=== PATIENT | female | born 1955 | race Caucasian/White ===

== ENCOUNTER 2022-08-02 09:20 | Inpatient (IN) | payer BC ==
[~2022-08-02] VITALS: Ht 162.6 cm; Wt 75.7 kg
[2022-08-02 09:26] VITALS: BP_SYST 128
[2022-08-02] MEDS ORDERED: IPRATROPIUM BROM 0.5 MG/2.5 ML VIAL.NEB (ATROVENT) INH ONE (09:30)
[2022-08-02] MEDS ORDERED: ALBUTEROL SULFATE 0.083% 2.5 MG/3 ML VIAL.NEB INH ONE (09:30)
[2022-08-02] MEDS ORDERED: methylPREDNISolone SOD SUCC/PF 62.5 MG/ML VIAL IVP ONE (09:30)
[2022-08-02] MEDS ORDERED: MAGNESIUM SULFATE 50 ML IV ONE (09:30)
--- NOTE | 2022-08-02 09:30 | NUR ---
Placed in room 02 . Placed on deckhand shrimp boat, blood pressure machine and pulse oximeter. To gown for exam. Side rails up. Report given to CUONG MCKNIGHT.
--- NOTE | 2022-08-02 09:31 | NUR ---
Pt was brought in from home by ACLS c/o SOB since she woke up this AM. Pt states she has not been feeling well for several days. Pt has hx of asthma. Denies hx of surgery. Denies use of alcohol, tobacco, other drugs. Pt is A&Ox4, calm and cooperative. Care to be provided as ordered by physician.
--- NOTE | 2022-08-02 09:32 | NUR ---
ER Dr. Davis at bedside examining patient.
[2022-08-02 10:00] LABS: BASOPHILS % (AUTO) 0.4 % (0.0-2.0); EOSINOPHILS % (AUTO) 0.2 % (0.0-4.0); HEMATOCRIT 38.2 % (36-48); HEMOGLOBIN 12.4 g/dL (12.0-16.0); LYMPHOCYTES # (AUTO) 1.2 K/uL (1.0-5.5); LYMPHOCYTES % (AUTO) 13.7 % (20.5-51.5); MEAN CORPUSCULAR HEMOGLOBIN 31 pg (27-31); MEAN CORPUSCULAR HGB CONC 33 % (32-36); MEAN CORPUSCULAR VOLUME 94 fL (79.0-98.0); MONOCYTES # (AUTO) 0.2 K/uL (0.0-1.0); MONOCYTES % (AUTO) 2.7 % (1.7-9.3); NEUTROPHILS # (AUTO) 7.5 K/uL (1.8-7.7); PLATELET COUNT (AUTO) 237 K/uL (130-430); RED BLOOD CELL COUNT(AUTO) 4.08 MIL/uL (4.2-6.2); RED CELL DISTRIBUTION WIDTH 13.9 % (9.0-15.0); WHITE BLOOD COUNT (AUTO) 9.1 K/uL (4.8-10.8)
[2022-08-02 10:14] LABS: ANION GAP 11 (5-15); CALCIUM 9.6 mg/dL (8.4-11.0); CHLORIDE 99 mmol/L (98-107); CREATININE 1.18 mg/dL (0.55-1.30); GLUCOSE 93 mg/dL (70-99); UREA NITROGEN, BLOOD 16 mg/dL (8-21)
[2022-08-02 10:19] LABS: ALANINE AMINOTRANSFERASE 23 U/L (12-78); ALBUMIN 2.6 g/dL (3.4-4.8); ASPARTATE AMINOTRANSFERASE 21 U/L (10-37); TOTAL BILIRUBIN 0.8 mg/dL (0.0-1.0)
[2022-08-02 10:36] LABS: GFR AFRICAN AMERICAN 59 mL/min (>90)
[2022-08-02] MEDS ORDERED: AZITHROMYCIN 500 MG in NS 250 ML IV ONE (11:30)
[2022-08-02] MEDS ORDERED: cefTRIAXone 2 GM VIAL IM ONE (11:30)
[2022-08-02] MEDS ORDERED: NACL 0.9% 1,000 ML IV ONE ×2 (11:30→12:15)
[2022-08-02] MEDS ORDERED: ALBUTEROL SULFATE 0.083% 2.5 MG/3 ML VIAL.NEB INH PRN (12:15)
[2022-08-02] MEDS ORDERED: ONDANSETRON HCL 4 MG/2 ML VIAL IVP PRN (12:15)
[2022-08-02] MEDS ORDERED: IPRATROPIUM BROM 0.5 MG/2.5 ML VIAL.NEB (ATROVENT) INH PRN (12:15)
[2022-08-02] MEDS ORDERED: AZITHROMYCIN 500 MG/VIAL (ZITHROMAX) IV ONE (12:42)
[2022-08-02] MEDS ORDERED: cefTRIAXone 1 GM IVPB PREMIX 50 ML IV ONE (12:45)
--- NOTE | 2022-08-02 13:56 | NUR ---
Admit bed requested Patient will be admitted to care of . Admitted to TELE unit. Diagnosis PNA Inpatient (Yes or No) YES Observation (Yes or No) NO Orientation concerns or request close to nursing station (Yes or No) NO Covid Status NEGATIVE On vent or bipap NO Isolation requirements NO Needs a sitter NO From Home (Yes or if No enter name of facility) HOME Requires Dialysis (Yes or No) NO Med Rec Completed (Yes of No) YES
--- NOTE | 2022-08-02 15:22 | NUR ---
CONSULT: CONSULT FOR DR LIGHT CALLED REASON- PNA ORDERING [facility]
[2022-08-02] MEDS: ALBUTEROL SULFATE 0.083% 2.5 MG/3 ML VIAL.NEB INH SCH ×3 (15:24→23:42)
[2022-08-02] MEDS: IPRATROPIUM BROM 0.5 MG/2.5 ML VIAL.NEB (ATROVENT) INH SCH ×3 (15:24→23:42)
--- NOTE | 2022-08-02 15:31 | NUR ---
REPORT GIVEN TO STEVEN HUTCHINS.
--- NOTE | 2022-08-02 15:34 | NUR ---
Patient will be admitted to [facility]. Admitted to TELE unit. Will go to room 130. Belongings list completed. Complete and up to date summary report printed. SBAR report to be given at bedside with opportunity for questions.
[2022-08-02 15:45] VITALS: BP_SYST 113
--- NOTE | 2022-08-02 15:45 | NUR ---
Miss Bergman has been assessed as indicated. She is being admitted to room 130-A. She states that she has HTN, chronic back pain for which she is being followed by a pain clinic MD. She also states that she has GERD and has back surgery to treat scoliosis she wears a back brace even while lying in bed. She has provided a list of home medications that have been added to the computer system. She states that she lives with her care givers but does not know a phone number for Norma Bolden and Scott Smith.
[2022-08-02 16:13] VITALS: BP_SYST 113
[2022-08-02] MEDS ORDERED: TOPXL100 PO (17:29)
[2022-08-02] MEDS ORDERED: METO-442 PO (17:29)
[2022-08-02] MEDS ORDERED: LISI30TA36 PO (17:30)
[2022-08-02] MEDS ORDERED: BREX0.25 PO (17:30)
[2022-08-02] MEDS ORDERED: OXYIR5 PO (17:35)
[2022-08-02] MEDS ORDERED: MORP15TA PO (17:35)
[2022-08-02] MEDS ORDERED: ALPR1TAB2 PO (17:35)
[2022-08-02] MEDS ORDERED: TRAZ-250 PO (17:35)
[2022-08-02] MEDS ORDERED: CYCL10TA24 PO (17:35)
[2022-08-02 20:00] VITALS: BP_SYST 120
--- NOTE | 2022-08-02 20:10 | NUR ---
handoff has been given to [employer]
[2022-08-02] MEDS: oxyCODONE HCL 5 MG TABLET PO SCH (20:44)
[2022-08-02] MEDS: methylPREDNISolone SOD SUCC/PF 62.5 MG/ML VIAL IVP SCH (20:45)
[2022-08-02] MEDS: traZODone HCL 50 MG TABLET (DESYREL) PO PRN (20:45)
[2022-08-02] MEDS: FAMOTIDINE PF 20 MG/2 ML VIAL IVP SCH (20:47)
[2022-08-03] VITALS: BP_SYST 119
[2022-08-03 00:15] VITALS: BP_SYST 135
[2022-08-03] MEDS: IPRATROPIUM BROM 0.5 MG/2.5 ML VIAL.NEB (ATROVENT) INH SCH ×5 (03:30→20:28)
[2022-08-03] MEDS: ALBUTEROL SULFATE 0.083% 2.5 MG/3 ML VIAL.NEB INH SCH ×5 (03:30→20:28)
[2022-08-03 07:07] LABS: HEMATOCRIT 31.1 % (36-48); HEMOGLOBIN 10.4 g/dL (12.0-16.0); LYMPHOCYTES # (AUTO) 0.3 K/uL (1.0-5.5); LYMPHOCYTES % (AUTO) 2.3 % (20.5-51.5); MEAN CORPUSCULAR HEMOGLOBIN 31 pg (27-31); MEAN CORPUSCULAR HGB CONC 34 % (32-36); MEAN CORPUSCULAR VOLUME 92 fL (79.0-98.0); MONOCYTES # (AUTO) 0.3 K/uL (0.0-1.0); MONOCYTES % (AUTO) 1.9 % (1.7-9.3); NEUTROPHILS % (AUTO) 95.8 % (40.0-70.0); PLATELET COUNT (AUTO) 230 K/uL (130-430); RED BLOOD CELL COUNT(AUTO) 3.38 MIL/uL (4.2-6.2); RED CELL DISTRIBUTION WIDTH 13.9 % (9.0-15.0); WHITE BLOOD COUNT (AUTO) 13.6 K/uL (4.8-10.8)
[2022-08-03 07:42] LABS: ALBUMIN 2.2 g/dL (3.4-4.8); CREATININE 0.89 mg/dL (0.55-1.30); TOTAL BILIRUBIN 0.5 mg/dL (0.0-1.0)
[2022-08-03 08:00] VITALS: BP_SYST 112
--- NOTE | 2022-08-03 08:00 | NUR ---
Initial Notes Patient is Aox4. No ss of acute respiratory distress noted. Patient on 2 L O2 via nasal cannula. Breathing is even and nonlabored. Patient is resting in bed, awake. Denies severe pain. Denies SOB. IV on LFA, 22 G patent. Vital signs obtained, as documented. Breakfast on bedside table. Bed is locked, alarm on, and at lowest position. Call light within reach.
[2022-08-03] MEDS: oxyCODONE HCL 5 MG TABLET PO SCH ×3 (09:27→20:41)
[2022-08-03] MEDS: lisinopriL 20 MG TABLET PO SCH (09:27)
[2022-08-03] MEDS: ENOXAPARIN SODIUM 40 MG/0.4 ML SYRINGE SUBCUT SCH (09:28)
[2022-08-03] MEDS: METOPROLOL SUCCINATE 50 MG TAB.SR.24H (TOPROL XL) PO SCH (09:28)
--- NOTE | 2022-08-03 10:00 | NUR ---
Notes Patient has been cleaned, linens changed. No ss of distress noted. Patient denies pain at this time. Safety precautions in place and call light within reach.
[2022-08-03] MEDS: methylPREDNISolone SOD SUCC/PF 62.5 MG/ML VIAL IVP SCH ×2 (10:44→20:42)
[2022-08-03] MEDS: FAMOTIDINE PF 20 MG/2 ML VIAL IVP SCH ×2 (10:45→20:42)
[2022-08-03 12:00] VITALS: BP_SYST 112; BP_SYST 123
[2022-08-03] MEDS ORDERED: cefTRIAXone 1 GM IVPB PREMIX 50 ML IV SCH (12:15)
[2022-08-03] MEDS ORDERED: POTASSIUM CHLORIDE 20 MEQ TAB.PRT.SR PO ONE (12:15)
--- NOTE | 2022-08-03 12:30 | NUR ---
Notes patient is eating lunch. Friends at bedside. No ss of distress noted. Patient denies pain. Safety precautions in place and call light within reach.
[2022-08-03] MEDS: AZITHROMYCIN 500 MG in NS 250 ML IV SCH (12:36)
[2022-08-03] MEDS: cefTRIAXone 1 GM IVPB PREMIX 50 ML IV SCH (12:36)
[2022-08-03 16:00] VITALS: BP_SYST 123
--- NOTE | 2022-08-03 17:20 | NUR ---
Notes Patient is resting, eyes closed. No distress noted. No facial grimace noted. Safety precautions in place. Addendum: 08/03/22 at 1722 by Terra Marion LVN Notes Patient is resting, eyes closed. No distress noted. No facial grimace noted. Safety precautions in place. Call light within reach.
--- NOTE | 2022-08-03 18:51 | NUR ---
Closing Notes Patient is awake and eating dinner. Denies pain. No SOB noted. Breathing is even and nonlabored, on 2 L O2 via NC. IV patent. Patient is stable. All needs met. Bed is locked, alarm on, and at lowest position. Call light within reach.
--- NOTE | 2022-08-03 19:15 | NUR ---
OPENING NOTES Patient resting in bed - no s/s pain or distress noted. Respirations even and unlabored - head of bed elevated 2L NC. IV site patent - no s/s redness, infection, or infiltration. Bed locked and in lowest position. Call light within reach.
[2022-08-03 20:00] VITALS: BP_SYST 147
[2022-08-03] MEDS: ALPRAZolam 0.25 MG TABLET PO PRN (20:41)
[2022-08-03] MEDS: traZODone HCL 50 MG TABLET (DESYREL) PO PRN (20:43)
[2022-08-04] VITALS: BP_SYST 116
[2022-08-04] MEDS: IPRATROPIUM BROM 0.5 MG/2.5 ML VIAL.NEB (ATROVENT) INH SCH ×7 (00:18→23:45)
[2022-08-04] MEDS: ALBUTEROL SULFATE 0.083% 2.5 MG/3 ML VIAL.NEB INH SCH ×7 (00:18→23:45)
--- NOTE | 2022-08-04 07:10 | NUR ---
opening note received sbar from night RN. Patient in bed, respirations even,non labored, bed in low and locked position, call light within reach, bed alarm on
--- NOTE | 2022-08-04 07:21 | NUR ---
CLOSING NOTES Patient resting in bed - no s/s pain or distress noted. Respirations even and unlabored - head of bed elevated. IV site patent - no s/s redness, infection, or infiltration. Bed locked and in lowest position. Call light within reach - bed alarm on.
[2022-08-04 08:00] VITALS: BP_SYST 133
[2022-08-04] MEDS: methylPREDNISolone SOD SUCC/PF 62.5 MG/ML VIAL IVP SCH ×2 (08:21→22:36)
[2022-08-04] MEDS: FAMOTIDINE PF 20 MG/2 ML VIAL IVP SCH ×2 (08:21→22:37)
[2022-08-04] MEDS: lisinopriL 20 MG TABLET PO SCH (08:22)
[2022-08-04] MEDS: METOPROLOL SUCCINATE 50 MG TAB.SR.24H (TOPROL XL) PO SCH (08:23)
[2022-08-04] MEDS: ENOXAPARIN SODIUM 40 MG/0.4 ML SYRINGE SUBCUT SCH (08:24)
[2022-08-04] MEDS: oxyCODONE HCL 5 MG TABLET PO SCH ×3 (08:24→21:13)
[2022-08-04] MEDS: cefTRIAXone 1 GM IVPB PREMIX 50 ML IV SCH (10:42)
[2022-08-04] MEDS: ALPRAZolam 0.25 MG TABLET PO PRN ×2 (10:42→21:12)
--- NOTE | 2022-08-04 11:45 | NUR ---
NURSE NOTE PATIENT IN BED, RESPIRATIONS EVEN, NON LABORED, 2L NASAL CANULA, BED IN LOW AND LOCKED POSITION, CALL LIGHT WITHIN REACH. BED ALARM ON
[2022-08-04] MEDS: AZITHROMYCIN 500 MG in NS 250 ML IV SCH (11:53)
[2022-08-04 12:00] VITALS: BP_SYST 122
--- NOTE | 2022-08-04 15:04 | NUR ---
NURSE NOTE ASSISTED PATIENT WITH AMBULATION TO THE BATHROOM. PATIENT VOIDED, AMBULATED BACK TO BED. BED IN LOW AND LOCKED POSITION, CALL LIGHT WITHIN REACH, BED ALARM ON
[2022-08-04 16:00] VITALS: BP_SYST 130
--- NOTE | 2022-08-04 17:46 | NUR ---
IV IV BECAME DISLODGED. IV CATHETER INTACT, NO BLEEDING. WILL ATTEMPT NEW IV
--- NOTE | 2022-08-04 19:14 | NUR ---
CLOSING NOTE PROVIDED SBAR TO NIGHT RN. PATIENT IN BED, RESPIRATIONS EVEN, NON LABORED, BED IN LOW AND LOCKED POSITION, CALL LIGHT WITHIN REACH. BED ALARM ON. ENDORSED NEW IV TO NIGHT RN. 2LNASAL CANULA O2
[2022-08-04 20:00] VITALS: BP_SYST 113
--- NOTE | 2022-08-04 20:59 | NUR ---
OPENING NOTES Patient resting in bed - no s/s pain or distress noted. Respirations even and unlabored - head of bed elevated 2L NC. IV site patent - no s/s redness, infection, or infiltration. Bed locked and in lowest position. Call light within reach - bed alarm on. Addendum: 08/05/22 at 0647 by Vinayak Meyers RN correction: no iv at start of shift to begin with
[2022-08-04] MEDS: traZODone HCL 50 MG TABLET (DESYREL) PO PRN (21:13)
--- NOTE | 2022-08-04 22:30 | NUR ---
new iv inserted r hand 22g
[2022-08-05] VITALS: BP_SYST 126
[2022-08-05] MEDS: ALBUTEROL SULFATE 0.083% 2.5 MG/3 ML VIAL.NEB INH SCH ×6 (04:17→23:21)
[2022-08-05] MEDS: IPRATROPIUM BROM 0.5 MG/2.5 ML VIAL.NEB (ATROVENT) INH SCH ×6 (04:17→23:21)
--- NOTE | 2022-08-05 06:30 | NUR ---
old iv ripped out new iv rfa 22g
--- NOTE | 2022-08-05 06:55 | NUR ---
CLOSING NOTES Patient resting in bed - no s/s pain or distress noted. Respirations even and unlabored - head of bed elevated 2L NC. IV site patent - no s/s redness, infection, or infiltration. Bed locked and in lowest position. Call light within reach - bed alarm on.
[2022-08-05 08:00] VITALS: BP_SYST 132
[2022-08-05] MEDS: ENOXAPARIN SODIUM 40 MG/0.4 ML SYRINGE SUBCUT SCH (08:19)
[2022-08-05] MEDS: oxyCODONE HCL 5 MG TABLET PO SCH ×3 (08:20→21:45)
[2022-08-05] MEDS: methylPREDNISolone SOD SUCC/PF 62.5 MG/ML VIAL IVP SCH ×2 (08:20→21:42)
[2022-08-05] MEDS: lisinopriL 20 MG TABLET PO SCH (08:20)
[2022-08-05] MEDS: ALPRAZolam 0.25 MG TABLET PO PRN ×2 (08:21→21:49)
[2022-08-05] MEDS: METOPROLOL SUCCINATE 50 MG TAB.SR.24H (TOPROL XL) PO SCH (08:21)
[2022-08-05] MEDS: FAMOTIDINE PF 20 MG/2 ML VIAL IVP SCH ×2 (08:23→21:41)
[2022-08-05 08:40] LABS: BASOPHILS % (AUTO) 0.2 % (0.0-2.0); HEMATOCRIT 33.2 % (36-48); LYMPHOCYTES # (AUTO) 0.9 K/uL (1.0-5.5); MEAN CORPUSCULAR HEMOGLOBIN 31 pg (27-31); MEAN CORPUSCULAR HGB CONC 33 % (32-36); MEAN CORPUSCULAR VOLUME 93 fL (79.0-98.0); MONOCYTES # (AUTO) 0.2 K/uL (0.0-1.0); MONOCYTES % (AUTO) 4.1 % (1.7-9.3); NEUTROPHILS # (AUTO) 4.1 K/uL (1.8-7.7); NEUTROPHILS % (AUTO) 78.7 % (40.0-70.0); PLATELET COUNT (AUTO) 252 K/uL (130-430); RED BLOOD CELL COUNT(AUTO) 3.58 MIL/uL (4.2-6.2); RED CELL DISTRIBUTION WIDTH 14.2 % (9.0-15.0); WHITE BLOOD COUNT (AUTO) 5.2 K/uL (4.8-10.8)
[2022-08-05 09:02] LABS: ALBUMIN 2.2 g/dL (3.4-4.8); CALCIUM 9.1 mg/dL (8.4-11.0); CREATININE 0.95 mg/dL (0.55-1.30); TOTAL BILIRUBIN 0.3 mg/dL (0.0-1.0)
[2022-08-05 09:13] VITALS: BP_SYST 132
[2022-08-05 12:00] VITALS: BP_SYST 129
[2022-08-05] MEDS: cefTRIAXone 1 GM IVPB PREMIX 50 ML IV SCH (12:39)
[2022-08-05] MEDS: AZITHROMYCIN 500 MG in NS 250 ML IV SCH (12:39)
[2022-08-05 14:05] LABS: ERYTHROCYTE SEDIMENTATION RATE 67 MM/HR (0-20)
[2022-08-05 16:00] VITALS: BP_SYST 124
--- NOTE | 2022-08-05 19:02 | NUR ---
ALL NEEDS ANTICIPATED NO ACUTE DISTRESS NOTED
[2022-08-05 20:00] VITALS: BP_SYST 129
[2022-08-05] MEDS: MORPHINE SULFATE 30 MG Immediate Release TABLET PO PRN (21:51)
[2022-08-06] MEDS: ALBUTEROL SULFATE 0.083% 2.5 MG/3 ML VIAL.NEB INH SCH ×6 (03:36→22:58)
[2022-08-06] MEDS: IPRATROPIUM BROM 0.5 MG/2.5 ML VIAL.NEB (ATROVENT) INH SCH ×6 (03:36→22:58)
[2022-08-06] MEDS: ALPRAZolam 0.25 MG TABLET PO PRN ×2 (06:34→21:29)
[2022-08-06] MEDS: MORPHINE SULFATE 30 MG Immediate Release TABLET PO PRN (06:36)
[2022-08-06 08:00] VITALS: BP_SYST 122
[2022-08-06] MEDS: FAMOTIDINE PF 20 MG/2 ML VIAL IVP SCH ×2 (09:00→21:00)
[2022-08-06] MEDS: ENOXAPARIN SODIUM 40 MG/0.4 ML SYRINGE SUBCUT SCH (10:44)
[2022-08-06] MEDS: methylPREDNISolone SOD SUCC/PF 62.5 MG/ML VIAL IVP SCH ×2 (10:44→21:00)
[2022-08-06] MEDS: METOPROLOL SUCCINATE 50 MG TAB.SR.24H (TOPROL XL) PO SCH (10:45)
[2022-08-06] MEDS: lisinopriL 20 MG TABLET PO SCH (10:46)
[2022-08-06] MEDS: oxyCODONE HCL 5 MG TABLET PO SCH ×3 (10:47→21:30)
[2022-08-06 12:00] VITALS: BP_SYST 131
[2022-08-06] MEDS: cefTRIAXone 1 GM IVPB PREMIX 50 ML IV SCH (12:46)
[2022-08-06] MEDS: AZITHROMYCIN 500 MG in NS 250 ML IV SCH (12:46)
[2022-08-06] MEDS ORDERED: FUROSEMIDE 20 MG/2 ML VIAL IVP ONE (13:00)
[2022-08-06 15:52] VITALS: BP_SYST 132
--- NOTE | 2022-08-06 20:00 | NUR ---
OPENING NOTES Patient in bed with eyes closed but awakens when hears me. She is pleasant but looks more lethargic than yesterday, voice slightly raspy and face a bit flushed. She states she feels fine, a little tired, and has elevated temperature of 99.8. Additionally the IV in right hand has come out. No fluids are running d
--- NOTE | 2022-08-06 20:12 | NUR ---
Report given to shift supervisor RN for continuity of care. Patient stable condition. No distress noted.
[2022-08-06] MEDS: FUROSEMIDE 20 MG/2 ML VIAL IVP SCH (21:00)
[2022-08-06 21:31] VITALS: BP_SYST 124
[2022-08-07] MEDS: IPRATROPIUM BROM 0.5 MG/2.5 ML VIAL.NEB (ATROVENT) INH SCH ×4 (03:00→14:47)
[2022-08-07] MEDS: ALBUTEROL SULFATE 0.083% 2.5 MG/3 ML VIAL.NEB INH SCH ×4 (03:00→14:47)
--- NOTE | 2022-08-07 03:37 | NUR ---
PATIENT ROUNDS Patient is in bed sleeping and does not appear to be in any distress. She is covered, cane at bedside, and path to restroom is clear.
--- NOTE | 2022-08-07 07:15 | NUR ---
OPENING NOTE Received report from [employer] cnc machinist 2nd shift RN. Upon entering room, patient awake, alert, oriented. She reports back pain at this time. No IV site noted at this time. Call light within reach, all safety precautions observed.
[2022-08-07 08:00] VITALS: BP_SYST 122
[2022-08-07] MEDS: FAMOTIDINE PF 20 MG/2 ML VIAL IVP SCH (09:00)
[2022-08-07] MEDS: FUROSEMIDE 20 MG/2 ML VIAL IVP SCH (09:00)
[2022-08-07] MEDS: methylPREDNISolone SOD SUCC/PF 62.5 MG/ML VIAL IVP SCH (09:00)
[2022-08-07] MEDS: METOPROLOL SUCCINATE 50 MG TAB.SR.24H (TOPROL XL) PO SCH (09:13)
[2022-08-07] MEDS: lisinopriL 20 MG TABLET PO SCH (09:14)
[2022-08-07] MEDS: oxyCODONE HCL 5 MG TABLET PO SCH (09:16)
[2022-08-07] MEDS: ENOXAPARIN SODIUM 40 MG/0.4 ML SYRINGE SUBCUT SCH (09:16)
[2022-08-07] MEDS: cefTRIAXone 1 GM IVPB PREMIX 50 ML IV SCH (11:00)
--- NOTE | 2022-08-07 11:30 | NUR ---
PT at bedside Patient ambulated with PT. PT reported patient tolerated procedure well.
[2022-08-07] MEDS: AZITHROMYCIN 500 MG in NS 250 ML IV SCH (12:00)
[2022-08-07] MEDS ORDERED: ZIT250 PO (14:10)
[2022-08-07 14:47] VITALS: BP_SYST 113
--- NOTE | 2022-08-07 16:20 | NUR ---
D/C Patient Patient given medication reconciliation form and D/C instructions. Exit Care provided. Patient verbalized understanding. Wheelchair to vehicle for discharge to home. Patient in stable condition, ID band removed. E-Rx of azithromycin given. Patient educated on pain management. All belongings sent with patient. Patient taken home by friend Norma in private auto.
== END 2022-08-07 16:20 | disposition home health service (06) | DRG 871 ==
LOC: SED 09:20 → STU 12:05 → SMU 08-05 11:42
PROVIDERS: ADMIT Family Medicine; ATTEND Family Medicine
DX: A41.9 Sepsis, unspecified organism (principal); J18.9 Pneumonia, unspecified organism; J96.01 Acute respiratory failure with hypoxia; J44.1 Chronic obstructive pulmonary disease with (acute) exacerbation; J44.0 Chronic obstructive pulmonary disease with (acute) lower respiratory infection; G89.4 Chronic pain syndrome; I11.0 Hypertensive heart disease with heart failure; I50.9 Heart failure, unspecified; Z88.2 Allergy status to sulfonamides
CPT/HCPCS: 36415; 71045; 80053; 83605; 83880; 84484; 85025; 85651-TC; 86140; 87040; 93005; 94640; 94760; 96361; 96365; 96375; 99291; G0378; J0456; J0696; J1650; J1940; J2274; J2930; J3475; J3490; J7030; J7040; J7050; J7613